=== PATIENT | female | born 1945 | race Caucasian/White ===

== ENCOUNTER 2024-11-01 14:58 | Emergency (ER) | payer MEDICARE ==
[~2024-11-01] VITALS: Ht 160 cm; Wt 117.9 kg
[2024-11-01] MEDS ORDERED: WATER ONE (15:17)
[2024-11-01 15:29] VITALS: BP 212/69; PULSE 82; RESP 18; TEMP 98.7; O2SAT 95
[2024-11-01] MEDS ORDERED: TRIPLE ANTIBIOTIC OINTMENT TP ONE (15:42)
[2024-11-01] MEDS ORDERED: BOOSTRIX IM ONE (16:53)
[2024-11-01] MEDS ORDERED: CEPH500T PO (16:55)
[2024-11-01] MEDS: BOOSTRIX IM ONE (16:58)
[2024-11-01 16:59] VITALS: BP 168/64; PULSE 79; RESP 18; TEMP 98.7; O2SAT 95
== END 2024-11-01 17:00 | disposition home or self-care (01) ==
LOC: ER 14:58
DX: S10.93XA Contusion of unspecified part of neck, initial encounter (principal); S01.01XA Laceration without foreign body of scalp, initial encounter; E11.9 Type 2 diabetes mellitus without complications; I10 Essential (primary) hypertension; E07.9 Disorder of thyroid, unspecified; Z90.49 Acquired absence of other specified parts of digestive tract; Z90.89 Acquired absence of other organs; Z98.51 Tubal ligation status; W01.0XXA Fall on same level from slipping, tripping and stumbling without subsequent striking against object, initial encounter; Y93.89 Activity, other specified; Y92.89 Other specified places as the place of occurrence of the external cause; Y99.8 Other external cause status
CPT/HCPCS: 99284; 70450; 90471; 12002; 90715; 72125; A4217